=== PATIENT | male | born 1930 | race Caucasian/White ===

== ENCOUNTER 2016-10-05 14:13 | Emergency (ER) | payer MEDICARE, OTHER ==
--- NOTE | 2016-10-05 14:40 | Emergency Department Record ---
History of Present Illness - General Chief complaint: Eye Problem Stated complaint: LOSS VISION RT EYE Time Seen by Provider: 10/05/16 14:32 Source: Patient, Family Mode of Arrival: Ambulatory Limitations: No limitations - History of Present Illness Initial comments: 86 yo male presents with transient right eye vision loss. The onset was about 2 -2.5 hours ago. It occurred at rest. He states it was nearly completely black/ dark on the right. The symptoms lasted 45 minutes. The symptoms have nearly completely resolved. No history of stroke. No history of vision changes. He has had atrial fibrillation and an acute [place]. No other speech changes, memory changes, weakness. He states it feels a little numb to his right lateral face. He denies any flashes or floaters. He is on coumadin for Afib PCP Dr Sherrie ANDRADE chief complaint: Vision change Onset/Timin -: Hour(s) Onset Description: Sudden Location: Right eye Place: Home If Injury: None Eye Symptoms: Decreased vision Consistency: Now resolved Associated Symptoms: None Treatments Prior to Arrival: None - Related Data Visual acuity (L) = 20/: 40 Visual acuity (R) = 20/: 40 With correction: No Home Medications Medication Instructions Recorded Confirmed Last Taken Aspirin [Ecotrin] 81 mg PO DAILY 03/17/15 03/17/15 03/17/15 Carbidopa/Levodopa [Carbidopa-Levo 1 each PO DAILY 03/17/15 03/17/15 03/17/15 25-100 mg Odt] Citalopram Hydrobromide [Celexa] 10 mg PO DAILY 03/17/15 03/17/15 03/17/15 Gabapentin [Neurontin] 100 mg PO DAILY 03/17/15 03/17/15 03/17/15 Gemfibrozil [Lopid] 600 mg PO TID 03/17/15 03/17/15 03/17/15 Hydrocodone/Acetaminophen [Hooppole 1 tab PO Q6H PRN 03/17/15 03/17/15 03/17/15 5mg/325mg] Levothyroxine Sodium [Synthroid] 300 mcg PO DAILY 03/17/15 03/17/15 03/17/15 Metoprolol Succinate [Toprol Xl] 25 mg PO DAILY 03/17/15 03/17/15 03/17/15 Omeprazole [Prilosec] 20 mg PO DAILY 03/17/15 03/17/15 03/17/15 Allergies Allergy/AdvReac Type Severity Reaction Status Date / Time Carbapenems Allergy Unknown HYPERSENSIT Verified 10/05/16 14:32 IVITY Cephalosporins Allergy Unknown HYPERSENSIT Verified 10/05/16 14:32 IVITY penicillin V Allergy Unknown HYPERSENSIT Verified 10/05/16 14:32 IVITY Penicillins Allergy Unknown HYPERSENSIT Verified 10/05/16 14:32 IVITY Travel Screening - Travel/Exposure Within Last 30 Days Have you traveled within the last 30 days?: No - Travel/Exposure Within Last Year Have you traveled outside the [place] in the last year?: No - Additonal Travel Details Have you been exposed to anyone with a communicable illness?: No - Travel Symptoms Symptom Screening: None Review of Systems Constitutional: Denies: Chills, Fever, Malaise, Weakness Eyes: Reports: Vision change. Denies: Eye discharge, Eye pain, Photophobia ENT: Denies: Congestion, Throat pain Respiratory: Denies: Cough, Dyspnea, Hemoptysis, Stridor, Wheezes Cardiovascular: Reports: Arrhythmia, Palpitations. Denies: Chest pain, Syncope Endocrine: Denies: Fatigue Gastrointestinal: Denies: Abdominal pain, Diarrhea, Nausea, Vomiting Genitourinary: Denies: Dysuria, Frequency, Hematuria Musculoskeletal: Denies: Arthralgia, Back pain, Joint swelling, Myalgia Skin: Denies: Bruising, Change in color, Rash Neurological: Denies: Confusion, Headache Psychiatric: Denies: Anxiety Hematological/Lymphatic: Denies: Blood Clots, Easy bleeding, Easy bruising, Swollen glands Past Medical History - SOCIAL HISTORY Smoking Status: Former smoker - RESPIRATORY Hx Respiratory Disorders: Yes Hx Dyspnea: Yes (on exertion) Hx Pneumonia: Yes (apr 2014; 2013 after surgery) - CARDIOVASCULAR Hx Cardio Disorders: Yes Hx Abnormal EKG: Yes Hx Irregular Heartbeat: Yes (hx afib) - NEURO Hx Neuro Disorders: Yes Hx Parkinson's Disease: Yes (Parkinsonian syndrome) Hx Weakness: Yes Comment:: seeing neurologist for last year for muscle weakness unknown etiology - GI Hx GI Disorders: Yes Hx Reflux: Yes Hx Rectal Bleeding: Yes (? hemmorrhoids) Hx of Polyps: Yes - Hx Genitourinary Disorders: Yes Hx Prostate Problems: Yes (re-route of urinary tract d/t prostate) - ENDOCRINE Hx Endocrine Disorders: Yes Hx Thyroid Disease: Yes - MUSCULOSKELETAL Hx Musculoskeletal Disorders: Yes Hx Arthritis: Yes (back and in hands; knees) - PSYCH Hx Psych Problems: Yes Hx Anxiety: Yes - HEMATOLOGY/ONCOLOGY Hx Hematology/Oncology Disorders: Yes Hx Cancer: Yes (skin) Family Medical History Any Significant Family History?: Yes Hx Cancer: Brother/Sister *Cancer Comment: breast Hx Dementia: Brother/Sister Hx Depression: Brother/Sister Hx Heart Disease: Mother, Brother/Sister *Heart Comment: [place] Hx Liver Disease: Father Physical Exam - General General Appearance: Alert, Oriented x3, Cooperative, No acute distress Limitations: No limitations - Head Head exam: Normal inspection - Eye Eye exam: Normal appearance, PERRL, EOMI. negative: Conjunctival injection, Nystagmus, Periorbital swelling, Scleral icterus Pupils: Normal accommodation, Other (Intact visual kirk X 4 on right, EOMI, no double vision) With correction: No - ENT ENT exam: Normal exam, Mucous membranes moist, Normal external ear exam, Normal orophraynx Ear exam: Normal external inspection. negative: External canal tenderness Nasal Exam: Normal inspection. negative: Discharge, Sinus tenderness Mouth exam: Normal external inspection, Tongue normal Teeth exam: Normal inspection. negative: Dental caries Throat exam: Normal inspection. negative: Tonsillar erythema, Tonsillar exudate - Neck Neck exam: Normal inspection, Full ROM. negative: Tenderness - Respiratory Respiratory exam: Normal lung sounds bilaterally. negative: Respiratory distress - Cardiovascular Cardiovascular Exam: Regular rate, Normal heart sounds Peripheral Pulses: 2+: Radial (R), Radial (L) - GI/Abdominal GI/Abdominal exam: Soft - Rectal Rectal exam: Deferred - exam: Deferred - Back Back exam: Reports: Normal inspection, Full ROM. Denies: Muscle spasm, Rash noted, Tenderness - Neurological Neurological exam: Alert, CN II-XII intact, Normal gait, Oriented X3, Reflexes normal, Other (Visual quadrants intact x 4.). negative: Altered, Motor sensory deficit - Psychiatric Psychiatric exam: Normal affect, Normal mood - Skin Skin exam: Dry, Intact, Normal color, Warm Course Vital Signs 10/05/16 14:15 Temperature 97.3 F L Pulse Rate 85 Respiratory 22 Rate Blood Pressure 147/85 Pulse Ox 96 - Reevaluation(s) Reevaluation #1: The patient states his symptoms are nearly resolved He is 20/40 in each eye His vision is intact in 4 quadrants 10/05/16 14:40 Reevaluation #2: EKG 14:40 NSR, rate 82, intervals QT479, axis normal, ST no acute changes. 10/05/16 14:55 Reevaluation #3: The labs were reviewed No acute changes of the CBC,CMP INR is 2.6 I SW the radiologist. No acute bleed or infarct. Chronic stable changes otherwise noted. 10/05/16 15:25 Reevaluation #4: I YESENIA Rodas He accept accepts the patient ED to ED I YESENIA the ED attending as well who accepts the patient ED to ED 10/05/16 15:43 Medical Decision Making - Lab Data Result diagrams: 10/05/16 14:45 10/05/16 14:45 Disposition Disposition: Discharge Clinical Impression: TIA (transient ischemic attack) Qualifiers: Transient cerebral ischemia type: other Qualified Code(s): G45.8 - Other transient cerebral ischemic attacks and related syndromes Acute visual loss Qualifiers: Laterality: right Qualified Code(s): H53.131 - Sudden visual loss, right eye Disposition: Acute Care Hospital Transfer Transfer To: [facility] Reason For Transfer: TIA Accepting Physician: Adrianna Time Discussed w/Accepting Physician: 15:46 Condition: (2) Stable Forms: Patient Portal Access Time of Disposition: 15:46
[2016-10-05 14:53] LABS: BASO % 0.4 % (0-6); EOS % 2.2 % (0-6); GRAN % 57.1 % (47-80); HEMATOCRIT 40.2 % (42.0-52.0); HEMOGLOBIN 12.7 gm/dl (14.0-18.0); LYMPH % 26.6 % (16-45); MEAN CELL VOLUME 92.6 fl (81-97); MEAN CORPUSCULAR HGB CONC 31.6 g/dl (32-36); MEAN PLATELET VOLUME 9.7 fl (7.4-10.4); MONO % 13.7 % (0-9); PLATELET COUNT 345 K/uL (130-400); RED BLOOD COUNT 4.34 M/uL (4.40-5.70); RED CELL DISTRIBUTION WIDTH 15.7 % (11.5-14.5)
[2016-10-05 14:55] LABS: MEAN CORPUSCULAR HEMOGLOBIN 29.2 pg (27-33)
[2016-10-05 15:04] LABS: ALBUMIN 3.8 gm/dL (3.5-5.0); ALKALINE PHOSPHATASE 58 U/L (38-126); ALT/SGPT 31 U/L (21-72); ANION GAP 11.1 (7-16); AST/SGOT 29 U/L (17-59); BILIRUBIN,TOTAL 0.51 mg/dL (0.2-1.3); BLOOD UREA NITROGEN 24 mg/dL (9-20); CARBON DIOXIDE 30.9 mmol/L (22-30); CREATININE 0.9 mg/dL (0.66-1.25); EST GLOMERULAR FILTRATION RATE > 60 ml/min; GLUCOSE,RANDOM 113 mg/dL (70-110); TOTAL PROTEIN 7.5 gm/dL (6.3-8.2)
[2016-10-05 15:06] LABS: INR 2.64; PARTIAL THROMBOPLASTIN TIME 33.4 SECONDS (24.5-39.1); PROTHROMBIN TIME (PATIENT) 29.8 SECONDS (9.5-12.1)
[2016-10-05 15:15] LABS: TROPONIN I < 0.012 ng/mL (0.00-0.034)
--- NOTE | 2016-10-09 14:13 | CT SCAN REPORT ---
EXAM: CT SCAN OF THE BRAIN WITHOUT CONTRAST HISTORY: INTERMITTENT RIGHT EYE BLINDNESS. TECHNIQUE: Standard CT imaging of the brain was performed in the axial plane without contrast. Additional coronal and sagittal reformatted images were also performed. Comparison: None. Encounter: Not applicable. Hand dominance: Unknown. FINDINGS: There is mild generalized atrophy. The ventricles and subarachnoid spaces are otherwise normal. Patchy areas of decreased attenuation are present within the periventricular and subcortical white matter at both cerebral hemispheres as well as within the shakira. These are consistent with chronic small vessel ischemic changes. Mild parenchymal calcifications are present within the basal ganglia bilaterally. Vascular calcifications are present. There is no hyperdense vessel sign. There is no mass, mass effect, intracranial hemorrhage,visible acute infarct, or abnormal extraaxial fluid. The orbits, sinuses, and mastoids appear within normal limits. IMPRESSION: 1. NO ACUTE INTRACRANIAL ABNORMALITY. 2. MILD ATROPHY AND CHRONIC SMALL VESSEL ISCHEMIC CHANGES. JOB NUMBER: [id number] MTDD
== END 2016-10-05 16:30 | disposition short-term general hospital (02) ==
LOC: ER 14:13
DX: G45.8 Other transient cerebral ischemic attacks and related syndromes (principal); H53.131 Sudden visual loss, right eye; I48.1 Persistent atrial fibrillation; Z79.01 Long term (current) use of anticoagulants; I25.2 Old myocardial infarction; Z87.891 Personal history of nicotine dependence
CPT/HCPCS: 70450; 80053; 84484; 85025; 85610; 85730; 93005; 93010; 99285

== ENCOUNTER 2017-05-15 09:24 | Emergency (ER) | payer MEDICARE, BC, OTHER ==
[2017-05-15] MEDS ORDERED: ASPIRIN 81 MG CHEWABLE TABLET PO ONE (09:37)
[2017-05-15] MEDS ORDERED: 0.9 % SODIUM CHLORIDE 1000ML 1,000 ML IV PRN (09:37)
[2017-05-15 09:49] LABS: BASO % 0.3 % (0-6); GRAN % 58.7 % (47-80); HEMATOCRIT 40.7 % (42.0-52.0); HEMOGLOBIN 13.2 gm/dl (14.0-18.0); LYMPH % 28.2 % (16-45); MEAN CELL VOLUME 90.8 fl (81-97); MEAN CORPUSCULAR HGB CONC 32.4 g/dl (32-36); MEAN PLATELET VOLUME 9.2 fl (7.4-10.4); MONO % 10.8 % (0-9); PLATELET COUNT 265 K/uL (130-400); RED BLOOD COUNT 4.48 M/uL (4.40-5.70); RED CELL DISTRIBUTION WIDTH 15.3 % (11.5-14.5); WHITE BLOOD COUNT W/O DIFF 7.2 K/uL (4.2-12.2)
[2017-05-15 10:03] LABS: INR 1.9; PARTIAL THROMBOPLASTIN TIME 30.6 SECONDS (24.5-39.1); PROTHROMBIN TIME (PATIENT) 20.7 SECONDS (9.5-12.1)
[2017-05-15 10:14] LABS: MEAN CORPUSCULAR HEMOGLOBIN 29.4 pg (27-33)
[2017-05-15 10:50] LABS: BLOOD UREA NITROGEN 30 mg/dL (8-23); CKMB 2.5 ng/mL (<6.73); CREATININE 0.9 mg/dL (0.7-1.2); EST GLOMERULAR FILTRATION RATE > 60 mL/min; GLUCOSE,RANDOM 116 mg/dL (74-109)
[2017-05-15 10:51] LABS: TROPONIN I < 0.30 ng/mL (0.00-0.300)
--- NOTE | 2017-05-15 11:17 | Emergency Department Record ---
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 He doesn't remember the DrSugey's name. Patient was lifting heavy vats of wine making wine and may have overdone it. Patient had a cyst on his kidney. Patient get some sort of infusions monthly for his blood but he is not sure about the diagnosis and his blood DrSugey is at [facility]. Onset/Timin -: Hour(s) Pain Location: Substernal, Left chest, Right chest Pain Radiation: None Severity: Moderate Quality: Sharp Consistency: Constant Improves With: Nothing Worsens With: Nothing Treatments Prior to Arrival: Aspirin - Related Data Home Medications Medication Instructions Recorded Confirmed Last Taken Acetaminophen 500 mg PO ASDIR 05/15/17 05/15/17 Unknown Albuterol Sulfate 3 mg PO ASDIR 05/15/17 05/15/17 Unknown Atorvastatin Calcium 40 mg PO DAILY 05/15/17 05/15/17 Unknown Cholecalciferol (Vitamin D3) 2,000 unit PO DAILY 05/15/17 05/15/17 Unknown [Vitamin D3] Folic Acid 0.4 mg PO DAILY 05/15/17 05/15/17 Unknown Furosemide [Lasix] 20 mg PO DAILY 05/15/17 05/15/17 Unknown Ipratropium Bradley 5 gm MC ASDIR 05/15/17 05/15/17 Unknown Ipratropium/Albuterol Sulfate 1 - 2 puff IH QID 05/15/17 05/15/17 Unknown [Combivent] Lorazepam [Ativan] 1 mg PO DAILY 05/15/17 05/15/17 Unknown Magnesium Oxide [Magnesium] 250 mg PO DAILY 05/15/17 05/15/17 Unknown Moxifloxacin HCl 400 mg PO DAILY 05/15/17 05/15/17 Unknown Multivitamin [Multi-Vitamin Daily] 1 each PO DAILY 05/15/17 05/15/17 Unknown Sotalol HCl [Betapace] 80 mg PO BID 05/15/17 05/15/17 Unknown Spironolactone 25 mg PO DAILY 05/15/17 05/15/17 Unknown Warfarin Sodium [Coumadin] 6 mg PO DAILY 05/15/17 05/15/17 Unknown Previous Rx's Medication Instructions Recorded Hydrocodone/Acetaminophen [Enterprise 1 each PO Q6HR #20 tablet 05/15/17 5-325 Tablet] Allergies Allergy/AdvReac Type Severity Reaction Status Date / Time Carbapenems Allergy Unknown HYPERSENSIT Verified 05/15/17 09:29 IVITY Cephalosporins Allergy Unknown HYPERSENSIT Verified 05/15/17 09:29 IVITY penicillin V Allergy Unknown HYPERSENSIT Verified 05/15/17 09:29 IVITY Penicillins Allergy Unknown HYPERSENSIT Verified 05/15/17 09:29 IVITY Travel Screening - Travel/Exposure Within Last 30 Days Have you traveled within the last 30 days?: No Review of Systems Reviewed: No additional complaints except as noted below Constitutional: Reports: As per HPI. Denies: Chills, Fever, Malaise, Night sweats, Weakness, Weight change Eyes: Reports: As per HPI. Denies: Eye discharge, Eye pain, Photophobia, Vision change ENT: Reports: As per HPI. Denies: Congestion, Dental pain, Ear pain, Epistaxis , Hearing loss, Throat pain Respiratory: Reports: As per HPI. Denies: Cough, Dyspnea, Hemoptysis, Stridor, Wheezes Cardiovascular: Reports: As per HPI. Denies: Arrhythmia, Chest pain, Dyspnea on exertion, Edema, Murmurs, Orthopnea, Palpitations, Paroxysmal nocturnal dyspnea, Rheumatic Fever, Syncope Endocrine: Reports: As per HPI. Denies: Fatigue, Heat or cold intolerance, Polydipsia, Polyuria Gastrointestinal: Reports: As per HPI. Denies: Abdominal pain, Constipation, Diarrhea, Hematemesis, Hematochezia, Melena, Nausea, Vomiting Genitourinary: Reports: As per HPI. Denies: Dysuria, Frequency, Hematuria, Incontinence, Retention, Testicular pain, Testicular mass, Urgency Musculoskeletal: Reports: As per HPI. Denies: Arthralgia, Back pain, Gout, Joint swelling, Myalgia, Neck pain Skin: Reports: As per HPI. Denies: Bruising, Change in color, Change in hair/ nails, Lesions, Pruritus, Rash Neurological: Reports: As per HPI. Denies: Abnormal gait, Confusion, Headache, Numbness, Paresthesias, Seizure, Tingling, Tremors, Vertigo, Weakness Psychiatric: Reports: As per HPI. Denies: Anxiety, Auditory hallucinations, Depression, Homicidal thoughts, Suicidal thoughts, Visual hallucinations Hematological/Lymphatic: Reports: As per HPI. Denies: Anemia, Blood Clots, Easy bleeding, Easy bruising, Swollen glands Past Medical History - SOCIAL HISTORY Smoking Status: Former smoker Alcohol Use: None Drug Use: None - RESPIRATORY Hx Respiratory Disorders: Yes Hx Dyspnea: Yes (on exertion) Hx Pneumonia: Yes (apr 2014; 2013 after surgery) - CARDIOVASCULAR Hx Cardio Disorders: Yes Hx Abnormal EKG: Yes Hx Cardiac Cath: Yes Hx CHF: Yes Hx Heart Attack: Yes Hx Irregular Heartbeat: Yes (hx afib) - NEURO Hx Neuro Disorders: Yes Hx Parkinson's Disease: Yes (Parkinsonian syndrome) Hx Weakness: Yes Comment:: polyneuropathy - GI Hx GI Disorders: Yes Hx Reflux: Yes Hx Rectal Bleeding: Yes (? hemmorrhoids) Hx of Polyps: Yes - Hx Genitourinary Disorders: Yes Hx Prostate Problems: Yes (re-route of urinary tract d/t prostate) - ENDOCRINE Hx Endocrine Disorders: Yes Hx Thyroid Disease: Yes - MUSCULOSKELETAL Hx Musculoskeletal Disorders: Yes Hx Arthritis: Yes (back and in hands; knees) - PSYCH Hx Psych Problems: Yes Hx Anxiety: Yes - HEMATOLOGY/ONCOLOGY Hx Hematology/Oncology Disorders: Yes Hx Anemia: Yes Hx Cancer: Yes (skin) Comment:: IVIG infusions once a month Family Medical History Any Significant Family History?: Yes Hx Cancer: Brother/Sister *Cancer Comment: breast Hx Dementia: Brother/Sister Hx Depression: Brother/Sister Hx Heart Disease: Mother, Brother/Sister *Heart Comment: [place] Hx Liver Disease: Father Physical Exam - General General Appearance: Alert, Oriented x3, Cooperative, Mild distress - Head Head exam: Normal inspection - Eye Eye exam: Normal appearance, PERRL Pupils: Normal accommodation - ENT ENT exam: Normal exam, Mucous membranes moist, Normal external ear exam, Normal orophraynx, TM's normal bilaterally Ear exam: Normal external inspection. negative: External canal tenderness Nasal Exam: Normal inspection. negative: Discharge, Sinus tenderness Mouth exam: Normal external inspection, Tongue normal Teeth exam: Normal inspection. negative: Dental caries Throat exam: Normal inspection. negative: Tonsillar erythema, Tonsillar exudate - Neck Neck exam: Normal inspection, Full ROM. negative: Tenderness - Respiratory Respiratory exam: Normal lung sounds bilaterally. negative: Respiratory distress - Cardiovascular Cardiovascular Exam: Regular rate, Normal rhythm, Normal heart sounds - GI/Abdominal GI/Abdominal exam: Soft, Normal bowel sounds. negative: Tenderness - Rectal Rectal exam: Deferred - exam: Deferred - Extremities Extremities exam: Normal inspection, Full ROM, Normal capillary refill. negative: Tenderness - Back Back exam: Reports: Normal inspection, Full ROM. Denies: Muscle spasm, Rash noted, Tenderness - Neurological Neurological exam: Alert, Normal gait, Oriented X3, Reflexes normal - Psychiatric Psychiatric exam: Normal affect, Normal mood - Skin Skin exam: Dry, Intact, Normal color, Warm Course Vital Signs 05/15/17 05/15/17 09:29 10:06 Temperature 97.5 F L Pulse Rate 61 Pulse Rate [ 62 Clinical Nurse Leader ] Respiratory 24 18 Rate Blood Pressure 149/88 Blood Pressure 126/75 [Left Arm] Pulse Ox 96 98 - Reevaluation(s) Reevaluation #1: patient feeling much better and he states he was lifting 100 pound vats of wine couple days ago. 05/15/17 11:43 Medical Decision Making - Lab Data Result diagrams: 05/15/17 09:40 05/15/17 09:40 Lab Results 05/15/17 05/15/17 05/15/17 Range/Units 09:40 09:40 09:40 WBC 7.2 (4.2-12.2) K/uL RBC 4.48 (4.40-5.70) M/uL Hgb 13.2 L (14.0-18.0) gm/dl Hct 40.7 L (42.0-52.0) % MCV 90.8 (81-97) fl MCH 29.4 (27-33) pg MCHC 32.4 (32-36) g/dl RDW 15.3 H (11.5-14.5) % Plt Count 265 (130-400) K/uL MPV 9.2 (7.4-10.4) fl Gran % 58.7 (47-80) % Lymphocytes % 28.2 (16-45) % Monocytes % 10.8 H (0-9) % Eosinophils % 2.0 (0-6) % Basophils % 0.3 (0-6) % PT 20.7 H (9.5-12.1) SECONDS INR 1.90 APTT 30.60 (24.5-39.1) SECONDS D-Dimer 0.65 H (0-0.59) mg/L FEU Sodium 140 (136-145) mmol/L Potassium 4.6 H (3.4-4.5) mmol/L Chloride 102 (98-107) mmol/L Carbon Dioxide 29.0 (22-29) mmol/L Anion Gap 9.0 (7-16) BUN 30 H (8-23) mg/dL Creatinine 0.9 (0.7-1.2) mg/dL Estimated GFR > 60 mL/min Random Glucose 116 H (74-109) mg/dL Calcium 9.0 (8.8-10.2) mg/dL CK-MB (CK-2) 2.5 (<6.73) ng/mL Troponin I < 0.30 (0.00-0.300) ng/mL NT-Pro-B Natriuret Pep 233.20 (<450) pg/mL Disposition Clinical Impression: Chest wall pain Chest pain Qualifiers: Chest pain type: unspecified Qualified Code(s): R07.9 - Chest pain, unspecified Disposition: Home, Self-Care Condition: (1) Good Instructions: Costochondritis (ED) Additional Instructions: heat to chest three times a day follow up with family next week Dr. Balderas Prescriptions: Hydrocodone/Acetaminophen [Enterprise 5-325 Tablet] 1 each PO Q6HR #20 tablet Forms: Patient Portal Access Time of Disposition: 14:24 Quality - Quality Measures Quality Measures: N/A - Blood Pressure Screening Does Patient Have Any of the Following: No Blood Pressure Classification: Pre-Hypertensive BP Reading Systolic Measurement: 149 Diastolic Measurement: 88 Screening for High Blood Pressure: Patient Exclusion, Hx of HTN [G9744] Pre-Hypertensive Follow-up Interventions: Referral to alternative/primary care provider.
[2017-05-15 14:18] LABS: CKMB 2.3 ng/mL (<6.73)
[2017-05-15 14:19] LABS: TROPONIN I < 0.30 ng/mL (0.00-0.300)
--- NOTE | 2017-05-16 11:09 | CT ANGIOGRAM REPORT ---
EXAM: CT ANGIOGRAM CHEST CTA w contrast HISTORY: ACUTE GENERALIZED CHEST PAIN. TECHNIQUE: Contiguous axial images from the thoracic inlet to the upper abdomen were obtained after the uneventful intravenous administration of 85 mL of Omnipaque-350. Sagittal and coronal two-dimensional MIP as well as 3D/MIP reformatted images were obtained for better anatomic delineation. COMPARISON: CT of the chest, 03/17/2015. FINDINGS: Juxtapleural nodule extreme base anterior right lower lobe unchanged from previous studies measuring 5 mm, likely benign. Mild dependent atelectatic change in the lower lobes. No pleural effusion. Central airways are patent. The heart is mildly enlarged and there is no pericardial effusion. Severe coronary artery calcification. No enlarged lymph nodes within the thorax. The pulmonary arteries are well-opacified. No filling defect to suggest pulmonary embolism. No obvious thoracic aortic dissection. Mild ectasia of the ascending aorta measuring 42.7 mm. Unilocular cyst upper pole left kidney measures 1.3 cm. Remainder of the upper abdomen is unremarkable. No lytic or blastic lesion. Minimal wedge deformity mid thoracic segment following hyperostosis along the anterior thoracic vertebral bodies. IMPRESSION: 1. NO EVIDENCE OF PULMONARY EMBOLISM OR THORACIC AORTIC DISSECTION. 2. MILD CARDIOMEGALY WITH SEVERE CORONARY ARTERY CALCIFICATION. 3. MILD ECTASIA ASCENDING AORTA. 4. MILD DEPENDENT ATELECTASIS. 5. BENIGN NODULE, RIGHT LOWER LOBE ANTERIORLY, UNCHANGED FROM PREVIOUS STUDIES. JOB NUMBER: [id number] MTDD
== END 2017-05-15 14:46 | disposition home or self-care (01) ==
LOC: ER 09:24
DX: R07.89 Other chest pain (principal); I48.91 Unspecified atrial fibrillation; I50.9 Heart failure, unspecified; I25.2 Old myocardial infarction; Z79.01 Long term (current) use of anticoagulants; Z87.891 Personal history of nicotine dependence
CPT/HCPCS: 99284 ×2; 85025; 85730; 85610; 82553; 84484; 80048; 85379; 83880; 71275; 93005; 93010; Q9967